=== PATIENT | male | born 1955 | race Caucasian/White ===

== ENCOUNTER 2019-04-15 11:34 | Emergency (ER) | payer BC ==
[2019-04-15 11:42] VITALS: BP 170/94
[2019-04-15] MEDS ORDERED: diphenhydrAMINE 50 MG Cap PO ONE (11:50)
[2019-04-15] MEDS ORDERED: predniSONE 20 MG Tab PO ONE (11:50)
--- NOTE | 2019-04-15 12:05 | EDM.PDOC ---
ED HPI GENERAL MEDICAL PROBLEM - General Chief Complaint: Allergic Reaction Stated Complaint: ALLERGIC REACTION Time Seen by Provider: 04/15/19 11:43 Source of Information: Reports: Patient, RN Notes Reviewed - History of Present Illness INITIAL COMMENTS - FREE TEXT/NARRATIVE: 64-year-old male comes in with allergic reaction. He states he was just eating a packaged salad when his mouth started becoming quite suddenly swollen. He's never had anything like that happen before. Because this came on so fast he did come immediately here to the emergency department. Had no swelling of his tongue or throat. No wheezing or difficulty breathing. An rash or itchiness. No other unusual exposure that he is aware of. - Related Data Allergies Allergy/AdvReac Type Severity Reaction Status Date / Time No Known Allergies Allergy Verified 10/06/15 07:00 Home Meds: Home Meds Empagliflozin [Jardiance] 25 mg PO DAILY 04/15/19 [History] Olmesartan/Hydrochlorothiazide [Olmesartan-Hctz 40-12.5 mg Tab] 1 tab PO DAILY 04/15/19 [History] Semaglutide 0.5 mg SUBCUT WEEKLY 04/15/19 [History] Past Medical History HEENT History: Reports: Impaired Vision, Otitis Media Other HEENT History: glasses Cardiovascular History: Reports: Hypertension Endocrine/Metabolic History: Reports: Diabetes, Type II - Infectious Disease History Infectious Disease History: Reports: Chicken Pox - Past Surgical History Neurological Surgical History: Reports: Other (See Below) Social & Family History - Family History Family Medical History: Noncontributory - Tobacco Use Smoking Status *Q: Never Smoker - Caffeine Use Caffeine Use: Reports: None ED ROS ALLERGIC REACTION - Review of Systems Review Of Systems: See Below Constitutional: Reports: No Symptoms HEENT: Reports: Other. Denies: Throat Pain (Swelling or mouth), Throat Swelling Respiratory: Denies: Shortness of Breath, Wheezing Cardiovascular: Denies: Chest Pain GI/Abdominal: Denies: Abdominal Pain Musculoskeletal: Reports: No Symptoms Skin: Denies: Pruritis, Rash Neurological: Reports: No Symptoms ED EXAM GENERAL NO PERIP PULSE - Physical Exam Exam: See Below General Appearance: Alert, Anxious (Mild) Eye Exam: Bilateral Eye: PERRL Nose: Normal Inspection Throat/Mouth: Normal Voice, Other (There is mild swelling of his upper and lower mouth, no other facial swelling visible at this time) Neck: Supple, Non-Tender Respiratory/Chest: No Respiratory Distress, Lungs Clear, Normal Breath Sounds. No: Rhonchi, Wheezing Cardiovascular: Regular Rate, Rhythm GI/Abdominal: Soft, Non-Tender Extremities: Normal Inspection, Normal Range of Motion Skin Exam: Warm, Dry, Normal Color, No Rash Course - Vital Signs Last Recorded V/S: Last Vital Signs Temp 98.7 F 04/15/19 11:38 Pulse 89 04/15/19 11:38 Resp 16 04/15/19 11:38 BP 170/94 H 04/15/19 11:38 Pulse Ox 98 04/15/19 11:38 - Orders/Labs/Meds Meds: Medications Discontinued Medications Generic Name Dose Route Start Last Admin Trade Name Saurabh PRN Reason Stop Dose Admin Diphenhydramine HCl 50 mg 04/15/19 11:50 04/15/19 11:56 Benadryl PO 04/15/19 11:51 50 mg ONETIME ONE Administration Prednisone 40 mg 04/15/19 11:50 04/15/19 11:56 Prednisone PO 04/15/19 11:51 40 mg ONETIME ONE Administration - Re-Assessments/Exams Free Text/Narrative Re-Assessment/Exam: 04/15/19 12:46 Swelling of mouth is almost gone, we have given Benadryl and a dose of prednisone, he continues to have no rash or itchiness or any respiratory symptoms. Discharge instructions as documented. Departure - Departure Time of Disposition: 12:47 Disposition: Home, Self-Care 01 Condition: Fair Clinical Impression: Allergic reaction Qualifiers: Encounter type: initial encounter Qualified Code(s): T78.40XA - Allergy, unspecified, initial encounter - Discharge Information Referrals: Pedro Salazar MD [Primary Care Provider] - Forms: ED Department Discharge Additional Instructions: Start Claritin 10 mg when you get home and then continue that daily for the next day or 2. He may take Benadryl if you do start having further symptoms. Follow-up clinic as needed, return to ED as needed if symptoms worsening in any way.
== END 2019-04-15 13:00 | disposition home or self-care (01) ==
LOC: JD.ED 11:34
DX: T78.1XXA Other adverse food reactions, not elsewhere classified, initial encounter (principal); R22.0 Localized swelling, mass and lump, head; E11.9 Type 2 diabetes mellitus without complications; Z79.899 Other long term (current) drug therapy; Z79.84 Long term (current) use of oral hypoglycemic drugs
CPT/HCPCS: 99283; A9270